=== PATIENT | female | born 1965 | race Caucasian/White ===

== ENCOUNTER → 2017-04-22 | Outpatient (CLI) | payer MEDICARE, MEDICAID ==
[~2017-04-22] MED LIST: COMBIVENT INH14.7 GM IN; ERRIN0.35 MG PO; MULTIVITAMIN1 TA2 PO; PERCOCET 5/3251 EACH PO; PRAVACHOL20 MG PO
--- NOTE | 2017-04-25 20:47 | RADIOLOGY REPORT PS360 ---
DIG MAMM-SCREEN [facility]INAH W/CAD CAD Screening COMPARISON: Digital mammograms 04/18/2015 and 04/20/2016 INDICATION: There is no personal or family history of breast cancer TECHNIQUE: Standard CC and MLO images were obtained. R2 CAD reviewed. FINDINGS: There is a diffusely dense and heterogenic parenchymal pattern as noted previously and the findings are bilateral and symmetrical. There is no new or suspicious lesion in either breast and no suspicious microcalcifications. There are stable small nodes in both axilla. IMPRESSION: Diffusely dense parenchymal pattern with no suspicious lesion seen recommend yearly follow-up BI-RADS CATEGORY: 1_Negative RECOMMENDED FOLLOWUP: 12M 12 MONTH FOLLOW-UP (A letter has been sent to the patient regarding results of the study.)
== END ==
LOC: RAD 15:58
DX: Z12.31 Encounter for screening mammogram for malignant neoplasm of breast (principal)
CPT/HCPCS: G0202